=== PATIENT | female | born 1985 | race Caucasian/White ===

== ENCOUNTER 2024-04-08 19:40 | Inpatient (IN) | payer OTHER ==
[2024-04-08] MEDS: LACTATED RINGERS SOLUTION 1,000 ML/1,000 ML INFUS.BAG IV SCH (20:45)
[2024-04-08 21:15] LABS: BASO % 0.3 % (0-2.0); EOS % 1.6 % (0-4.5); HEMATOCRIT 36.4 % (32.4-45.2); HEMOGLOBIN 12.2 GM/dL (10.7-15.3); LYMPH % 20.4 % (8-40); MCH 29.1 pg (25.7-33.7); MCHC 33.7 g/dl (32.0-36.0); MEAN CELL VOLUME 86.4 fl (80-96); MEAN PLT VOLUME 7.6 fl (7.5-11.1); NEUT % 70.7 % (42.8-82.8); PLATELET COUNT 376 10^3/uL (134-434); RBC 4.21 M/mm3 (3.60-5.2); RDW 14.4 % (11.6-15.6); WHITE BLOOD COUNT 8.4 K/mm3 (4.0-10.0)
[2024-04-08 21:29] LABS: ACTIVATED PTT 24.6 SECONDS (25.2-36.5)
[2024-04-08 21:57] LABS: CALCIUM 8.9 mg/dL (8.5-10.1)
[2024-04-08 21:58] LABS: BLOOD UREA NITROGEN 6.9 mg/dL (7-18)
[2024-04-08 22:01] LABS: CREATININE 0.6 mg/dL (0.55-1.3)
[2024-04-08 23:06] LABS: HIV INTERPRETATION NEGATIVE (NEGATIVE)
[2024-04-08 23:11] VITALS: BMI 38.4
[2024-04-09] MEDS: CITRIC ACID/SODIUM CITRATE 30 ML UNIT-DOSE CUP PO ONE (01:00)
[2024-04-09] MEDS ORDERED: FENTANYL/BUPIVACAINE/NS/PF - PCEA - 50 ML DISP.SYRIN EP ONE ×3 (02:37→10:11)
[2024-04-09] MEDS ORDERED: BUPIVACAINE HCL/PF 0.25% (2.5MG/ML) 10 ML VIAL ONE (02:50)
[2024-04-09] MEDS: FENTANYL/BUPIVACAINE/NS/PF - PCEA - 50 ML DISP.SYRIN EP SCH (03:05)
[2024-04-09] MEDS ORDERED: NALOXONE HCL 0.4 MG/ML VIAL IVPUSH PRN (03:12)
[2024-04-09] MEDS ORDERED: OXYTOCIN 30 UNITS in 0.9% NS 30 UNIT/500 ML INFUS.BAG IVPB ONE (06:11)
[2024-04-09] MEDS: OXYTOCIN 30 UNITS in 0.9% NS 30 UNIT/500 ML INFUS.BAG IVPB SCH (06:17)
[2024-04-09] MEDS ORDERED: LEVOTHYROXINE NA 150 MCG TABLET PO SCH (07:00)
[2024-04-09] MEDS: LEVOTHYROXINE NA 150 MCG TABLET PO SCH (10:16)
[2024-04-09] MEDS ORDERED: LIDOCAINE HCL/PF 2% SDV 5ML VIAL ONE ×2 (11:31→12:03)
[2024-04-09] MEDS ORDERED: FENTANYL CITRATE/PF 50 MCG/ML VIAL ONE ×2 (11:32→12:26)
[2024-04-09] MEDS ORDERED: morphine SULFATE/PF 1 MG/2 ML (2cc Syringe - QUVA) ONE (12:26)
[2024-04-09] MEDS ORDERED: AZITHROMYCIN IVPB 500 MG/250 ML BAG IVPB ONE (12:43)
[2024-04-09] MEDS ORDERED: DEXAMETHASONE SOD PHOSPHATE 4 MG/1 ML VIAL ONE (12:46)
[2024-04-09] MEDS ORDERED: OXYTOCIN 10 UNITS/ML VIAL ONE (12:46)
[2024-04-09] MEDS ORDERED: KETOROLAC TROMETHAMINE 30 MG/1 ML VIAL ONE (12:46)
[2024-04-09] MEDS ORDERED: METOCLOPRAMIDE HCL INJECTION 10 MG/2 ML VIAL ONE (12:46)
[2024-04-09] MEDS ORDERED: ONDANSETRON 4 MG/2 ML VIAL ONE (12:46)
[2024-04-09] MEDS ORDERED: ceFAZolin SODIUM 1 GM VIAL ONE (12:46)
[2024-04-09] MEDS ORDERED: ACETAMINOPHEN 1000 MG/100 ML BAG IVPB PRN (13:38)
[2024-04-09] MEDS ORDERED: ONDANSETRON 4 MG/2 ML VIAL IVPB PRN (13:38)
[2024-04-09] MEDS ORDERED: IBUPROFEN (CALDOLOR) 800 MG/200 ML PREMIX BAGS IVPB PRN (13:38)
[2024-04-09] MEDS ORDERED: oxyCODONE HCL 5 MG TABLET PO PRN (13:38)
[2024-04-09] MEDS ORDERED: IBUPROFEN 600 MG TABLET (FP) PO PRN (13:38)
[2024-04-09] MEDS ORDERED: BUDESONIDE/FORMETEROL FUMARATE 160/4.5 mcg INHALER IH SCH (13:45)
[2024-04-09] MEDS ORDERED: ALBUTEROL SO4 HFA INHALER IH PRN (13:45)
[2024-04-09] MEDS ORDERED: OXYTOCIN 20 UNITS in 0.9% NS 20 UNIT/1,000 ML INFUS.BAG IV ONE (13:56)
[2024-04-09] MEDS: OXYTOCIN 20 UNITS in 0.9% NS 20 UNIT/1,000 ML INFUS.BAG IV SCH (14:03)
[2024-04-09] MEDS: ACETAMINOPHEN 1000 MG/100 ML BAG IVPB SCH (18:19)
[2024-04-09] MEDS: DOCUSATE SODIUM 100 MG CAPSULE (FP) PO SCH (18:19)
[2024-04-09] MEDS: IBUPROFEN (CALDOLOR) 800 MG/200 ML PREMIX BAGS IVPB SCH (18:19)
[2024-04-09] MEDS: SIMETHICONE 80 MG TAB.CHEW (FP) PO PRN (19:31)
[2024-04-09] MEDS: SENNOSIDES/DOCUSATE COMBO (SENNA PLUS) TABLET (UD) PO SCH (21:41)
[2024-04-10 01:48] VITALS: RESP 18
[2024-04-10] MEDS: LEVOTHYROXINE NA 150 MCG TABLET PO SCH (06:31)
[2024-04-10 08:32] LABS: BASO % 0.1 % (0-2.0); EOS % 0.4 % (0-4.5); HEMATOCRIT 29.4 % (32.4-45.2); HEMOGLOBIN 9.7 GM/dL (10.7-15.3); LYMPH % 13.6 % (8-40); MCH 28.5 pg (25.7-33.7); MCHC 32.9 g/dl (32.0-36.0); MEAN CELL VOLUME 86.8 fl (80-96); MEAN PLT VOLUME 7.7 fl (7.5-11.1); NEUT % 77.9 % (42.8-82.8); PLATELET COUNT 308 10^3/uL (134-434); RBC 3.38 M/mm3 (3.60-5.2); RDW 14.7 % (11.6-15.6); WHITE BLOOD COUNT 13.6 K/mm3 (4.0-10.0)
[2024-04-10] MEDS: PRENATAL VITAMINS W/ FOLIC ACID TABLET (FP) PO SCH (09:15)
[2024-04-10] MEDS: ACETAMINOPHEN 500 MG TABLET (FP) PO SCH (09:15)
[2024-04-10] MEDS: DIPHTH,PERTUSS(ACELL),TET 0.5 ML DISP.SYRIN IM ONE (10:55)
[2024-04-10] MEDS: FERROUS SO4 325 MG TABLET (FP) PO SCH (10:56)
[2024-04-10] MEDS: IBUPROFEN 600 MG TABLET (FP) PO SCH (12:16)
[2024-04-10] MEDS ORDERED: BISACODYL 10 MG SUPP.RECT RC PRN (13:38)
[2024-04-10] MEDS ORDERED: ACETAMINOPHEN 325 MG TABLET (FP) PO PRN (13:38)
[2024-04-11] MEDS: oxyCODONE HCL 5 MG TABLET PO PRN (00:53)
[2024-04-12 10:19] VITALS: BP 110/65; PULSE 75; TEMP 98.5
== END 2024-04-12 12:00 | disposition home or self-care (01) | DRG 540 ==
LOC: JDEL 19:40 → JLDR 22:00 → J3W 04-09 16:30
PROVIDERS: ADMIT Specialist; ATTEND Specialist
PROC: 10D00Z1 Extraction of Products of Conception, Low, Open Approach (ICD-10-PCS; principal; 2024-04-09)
DX: O32.2XX0 Maternal care for transverse and oblique lie, not applicable or unspecified (principal); O62.1 Secondary uterine inertia; O48.0 Post-term pregnancy; O76 Abnormality in fetal heart rate and rhythm complicating labor and delivery; Z3A.40 40 weeks gestation of pregnancy; Z37.0 Single live birth
CPT/HCPCS: 36415; 76815; 80048; 85025; 85610; 85730; 86780; 86850; 86900; 86901; 87389; 88307-TC; 90715; 94010; J0131